=== PATIENT | female | born 1965 | race Caucasian/White ===

== ENCOUNTER 2019-07-01 05:56 | Day surgery (SDC) | payer OTHER ==
[2019-07-01] MEDS: MIDAZOLAM 1 MG/ML 2 ML INJ IV (07:05)
[2019-07-01] MEDS: SOD CHLORIDE 0.9% 1,000 ML IV (07:05)
[2019-07-01] MEDS ORDERED: BUPIVACAINE 0.25% (MPF) 30 ML INJ (07:33)
[2019-07-01] MEDS ORDERED: PROPOFOL 20 ML ×2 (07:57→08:04)
[2019-07-01] MEDS ORDERED: FENTAnyl 50 MCG/ML VIAL ×2 (07:57→08:05)
[2019-07-01] MEDS: CEFAZOLIN 2 GM/50 ML (PMX) 50 ML IVPB (08:01)
[2019-07-01] MEDS ORDERED: CEFAZOLIN 1 GM INJ (08:04)
[2019-07-01] MEDS ORDERED: LIDOCAINE 2% (SDV) 5 ML INJ (08:13)
[2019-07-01] MEDS ORDERED: METOCLOPRAMIDE 10 MG INJ (08:14)
[2019-07-01] MEDS ORDERED: ONDANSETRON 4 MG INJ (08:14)
[2019-07-01] MEDS: LIDOCAINE 2% (MDV) 20 ML INJ (08:19)
[2019-07-01] MEDS: BUPIVACAINE 0.5% (SDV) 30 ML INJ (08:19)
[2019-07-01] MEDS ORDERED: KETOROLAC 30 MG INJ (08:26)
[2019-07-01] MEDS ORDERED: FENTAnyl 50 MCG/ML VIAL IV ×3 (08:30)
[2019-07-01] MEDS ORDERED: OXYCODONE/ACETAMINOPHEN (5/325) TAB PO ×2 (08:30)
[2019-07-01] MEDS ORDERED: MEPERIDINE 25 MG INJ IV (08:30)
[2019-07-01] MEDS ORDERED: ONDANSETRON 4 MG INJ IV (08:30)
[2019-07-01] MEDS ORDERED: HYDROmorphONE 1 MG/5 ML IV SYRINGE IV ×3 (08:30)
[2019-07-01] MEDS ORDERED: DIPHENHYDRAMINE 50 MG INJ IV (08:30)
[2019-07-01] MEDS ORDERED: MIDAZOLAM 1 MG/ML 2 ML INJ IV (08:30)
[2019-07-01] MEDS ORDERED: IBUPROFEN 600 MG TAB PO (09:30)
== END 2019-07-01 09:50 | disposition home or self-care (01) ==
LOC: SDS 05:56
DX: D03.59 Melanoma in situ of other part of trunk (principal)
CPT/HCPCS: 14000; 88305; 88342